=== PATIENT | female | born 1980 | race African-American/Black ===

== ENCOUNTER 2024-08-13 22:26 | Emergency (ER) | payer OTHER ==
[~2024-08-13] VITALS: Ht 170.2 cm; Wt 80.9 kg
[2024-08-13 22:43] VITALS: BP 117/70; PULSE 80; RESP 18; TEMP 98.6; O2SAT 99
[2024-08-13] MEDS ORDERED: GABA-1181 PO (22:46)
[2024-08-14] MEDS: ONDANSETRON HCL 4 MG/2 ML VIAL IVP ONE (01:06)
[2024-08-14] MEDS: KETOROLAC TROMETHAMINE 30 MG/ML VIAL IVP ONE (01:06)
[2024-08-14] MEDS: HYDROmorphone HCL 2 MG/ML SYRINGE IVP ONE (01:07)
[2024-08-14 03:26] LABS: BASOPHILS % (AUTO) 1.1 % (0.0-2.0); EOSINOPHILS % (AUTO) 0.6 % (1.0-6.0); HEMATOCRIT 37.3 % (36-46); HEMOGLOBIN 12.4 g/dL (12.0-16.0); LYMPHOCYTES # (AUTO) 1.9 K/uL (1.0-4.8); LYMPHOCYTES % (AUTO) 29.9 % (22.0-44.0); MEAN CORPUSCULAR HEMOGLOBIN 33.3 pg (26.0-34.0); MEAN CORPUSCULAR HGB CONC 33.4 G/dL (31.0-37.0); MEAN CORPUSCULAR VOLUME 100 fL (80-100); MONOCYTES # (AUTO) 0.6 K/uL (0.1-1.0); MONOCYTES % (AUTO) 8.7 % (2.0-9.0); NEUTROPHILS # (AUTO) 3.8 K/uL (1.8-7.7); NEUTROPHILS % (AUTO) 59.7 % (40.0-70.0); PLATELET COUNT (AUTO) 266 K/uL (150-450); RED BLOOD CELL COUNT(AUTO) 3.74 MIL/uL (4.00-5.20); RED CELL DISTRIBUTION WIDTH 13.4 % (11.5-14.5); WHITE BLOOD COUNT (AUTO) 6.4 K/uL (4.5-11.0)
[2024-08-14 03:33] LABS: ANION GAP 7 mmol/L (8-16); CALCIUM, TOTAL 8.4 mg/dL (8.8-10.5); CARBON DIOXIDE 27 mmol/L (22-29); CHLORIDE 104 mmol/L (98-107); CREATININE 0.78 mg/dL (0.60-1.30); GLOMERULAR FILTR. RATE CALC > 60 mL/min (>60); GLUCOSE,RANDOM 104 mg/dL (70-110); POTASSIUM 3.5 mmol/L (3.5-5.1); SODIUM SERUM 138 mmol/L (136-145); UREA NITROGEN, BLOOD 9 mg/dL (7-18)
[2024-08-14] MEDS ORDERED: IBUP-1554 PO (04:26)
[2024-08-14] MEDS ORDERED: HYDR-4062 PO (04:26)
== END 2024-08-14 04:42 | disposition home or self-care (01) ==
LOC: EMS 22:30
DX: S16.1XXA Strain of muscle, fascia and tendon at neck level, initial encounter (principal); S40.012A Contusion of left shoulder, initial encounter; F12.90 Cannabis use, unspecified, uncomplicated; Z98.51 Tubal ligation status; Z79.899 Other long term (current) drug therapy; W19.XXXA Unspecified fall, initial encounter; Y93.89 Activity, other specified; Y92.89 Other specified places as the place of occurrence of the external cause; Y99.8 Other external cause status
CPT/HCPCS: 99285; 96374; 96375; 80048; 84703; 85025; 36415; 70450; 71045; 72170; 73030; 72125; J1885; J1171; J2405; 99284

== ENCOUNTER 2024-10-07 19:36 | Emergency (ER) | payer OTHER ==
[~2024-10-07] VITALS: Ht 170.2 cm; Wt 84.1 kg
[~2024-10-07 19:36] MED LIST: GABA-1181 PO; HYDR-4062 PO; IBUP-1554 PO
[2024-10-07 19:45] VITALS: BP 146/98; PULSE 90; RESP 18; TEMP 98.6; O2SAT 98
[2024-10-07 21:09] LABS: PLATELET COUNT (AUTO) 328 K/uL (150-450); RED BLOOD CELL COUNT(AUTO) 4.05 MIL/uL (4.00-5.20); RED CELL DISTRIBUTION WIDTH 13.2 % (11.5-14.5); WHITE BLOOD COUNT (AUTO) 5.6 K/uL (4.5-11.0)
[2024-10-07 21:18] LABS: CALCIUM, TOTAL 9.0 mg/dL (8.8-10.5); CREATININE 0.89 mg/dL (0.60-1.30); GLOMERULAR FILTR. RATE CALC > 60 mL/min (>60); GLUCOSE,RANDOM 100 mg/dL (70-110); SODIUM SERUM 140 mmol/L (136-145); UREA NITROGEN, BLOOD 5 mg/dL (7-18)
[2024-10-07 21:26] LABS: TROPONIN I-HIGH SENSITIVITY Less Than 4 ng/L (<51)
[2024-10-07] MEDS: IBUPROFEN 400 MG TABLET PO ONE (22:00)
[2024-10-07] MEDS ORDERED: GABAPENTIN 300 MG CAPSULE PO ONE (22:15)
== END 2024-10-07 22:00 | disposition left against medical advice (07) ==
LOC: EMS 19:36
DX: B34.9 Viral infection, unspecified (principal); R45.1 Restlessness and agitation; F12.90 Cannabis use, unspecified, uncomplicated; Z79.899 Other long term (current) drug therapy
CPT/HCPCS: 99285; 71045; 80048; 84484; 84703; 85025; 36415; 93005; G0480